=== PATIENT | male | born 1935 | race Caucasian/White ===

== ENCOUNTER 2016-12-16 12:00 | Day surgery (SDC) | payer MEDICARE, OTHER ==
[2016-12-16] MEDS ORDERED: LACTATED RINGERS 1,000 ML IV ONE (12:26)
[2016-12-16] MEDS ORDERED: ceFAZolin 1 GM VIAL ONE (12:27)
[2016-12-16] MEDS ORDERED: fentaNYL 100 MCG/2 ML VIAL IVP ONE (13:37)
[2016-12-16] MEDS ORDERED: MIDAZOLAM 2 MG/2 ML VIAL IVP ONE (13:37)
== END 2016-12-16 12:01 | disposition home or self-care (01) ==
PROC: 0DBP8ZZ Excision of Rectum, Via Natural or Artificial Opening Endoscopic (ICD-10-PCS; principal; 2016-12-16 13:00)
DX: C7A.026 Malignant carcinoid tumor of the rectum (principal); K59.00 Constipation, unspecified; Z80.0 Family history of malignant neoplasm of digestive organs; Z87.891 Personal history of nicotine dependence; Z82.49 Family history of ischemic heart disease and other diseases of the circulatory system; R14.0 Abdominal distension (gaseous); N40.0 Benign prostatic hyperplasia without lower urinary tract symptoms; I10 Essential (primary) hypertension
CPT/HCPCS: 45380; J7120

== ENCOUNTER 2017-01-22 11:11 | Outpatient (CLI) | payer MEDICARE, OTHER | END 2017-01-22 11:12 | disposition home or self-care (01) | DX: M50.30 Other cervical disc degeneration, unspecified cervical region (principal); M47.892 Other spondylosis, cervical region ==

== ENCOUNTER 2017-03-25 06:58 | Emergency (ER) | payer MEDICARE, OTHER ==
[2017-03-25 07:36] LABS: BILIRUBIN,URINE NEGATIVE (NEGATIVE)
[2017-03-25 07:46] LABS: UA CHARGE (STRIP ONLY) YES; UR CULTURE IF IND NOT INDICATED
--- NOTE | 2017-03-25 07:50 | ED Physician Documentation ---
History of Present Illness - Stated complaint Stated Complaint: POST SURG COMPLICATIONS/ABD PX - Chief complaint Chief Complaint: Abd Pain - Additonal information Additional information: hx from pt 81 male had flex sig at Prov yesterday post op urinary retention had in and out cath after many hr able to urinate a little bit so dced unable to urinate since dc sig bladder discomfort had no sx prior to surgery hx "irregular shaped prostate" and used to see Dr Delgadillo q6m but has not seen urology since Dr Delgadillo retired no fever Review of Systems Constitutional: denies: Fever Cardiac: denies: Chest pain / pressure Respiratory: denies: Dyspnea GI: reports: Abdominal Pain (bladder) : reports: Unable to Void PD PAST MEDICAL HISTORY - Past Medical History Past Medical History: Yes Cardiovascular: Hypertension Respiratory: None Endocrine/Autoimmune: HyPOthyroidism GI: Colon polyps : Benign prostate hypertrophy HEENT: Chronic hearing loss Psych: None Musculoskeletal: Gout Derm: Other - Past Surgical History Past Surgical History: Yes General: Colonoscopy, Other Ortho: Knee replacement, Spine surgery, Other HEENT: Cataracts, Tonsil/Adenoidectomy Derm: Skin cancer surgery - Present Medications Home Medications: Ambulatory Orders Medication Instructions Recorded Confirmed Albuterol Sulfate [Albuterol 2 puffs IH Q4HR PRN #1 hfa.aer.ad 01/21/15 10/05/15 Sulfate Hfa] Amoxicillin 500 mg PO TID #20 capsule 01/21/15 10/05/15 Aspirin [Aspir 81] 81 mg PO DAILY 01/21/15 12/16/16 Levothyroxine [Synthroid] 137 mcg PO DAILY 01/21/15 12/15/16 Losartan [Cozaar] 25 mg PO DAILY 01/21/15 12/15/16 guaiFENesin/CODEINE [Robitussin AC] 10 ml PO Q6H PRN #240 ml 01/21/15 10/05/15 predniSONE [Deltasone] 40 mg PO DAILY 5 Days 01/21/15 10/05/15 - Allergies Allergies/Adverse Reactions: Allergies Allergy/AdvReac Type Severity Reaction Status Date / Time lisinopril AdvReac Unknown Verified 10/05/15 11:11 - Social History Does the pt smoke?: No Smoking Status: Never smoker Does the pt drink ETOH?: No Does the pt have substance abuse?: No - Immunizations Immunizations are current?: Yes PD ED PE NORMAL - Vitals Vital signs reviewed: Yes - Neck Neck: Supple, no meningeal sign - Cardiac Cardiac: RRR - Respiratory Respiratory: No respiratory distress - Abdomen Abdomen: Soft, Other (TTP and distended bladder) - Male Male : Other (curc, no blood, no lesions, no swelling) Results - Vitals Vitals: Vital Signs - 24 hr 03/25/17 07:11 Temperature 36.9 C Heart Rate 80 Respiratory 20 Rate Blood Pressure 148/88 H O2 Saturation 98 Oxygen O2 Source Room air - Labs Labs: Laboratory Tests 03/25/17 07:30 Urine Color YELLOW Urine Clarity CLEAR Urine pH 6.0 Ur Specific [place] 1.015 Urine Protein NEGATIVE Urine Glucose (UA) NEGATIVE Urine Ketones NEGATIVE Urine Occult Blood NEGATIVE Urine Nitrite NEGATIVE Urine Bilirubin NEGATIVE Urine Urobilinogen 0.2 (NORMAL) Ur Leukocyte Esterase NEGATIVE Ur Microscopic Review NOT INDICATED Urine Culture Comments NOT INDICATED Departure - Departure Disposition: 01 Home, Self Care Clinical Impression: Postoperative urinary retention Condition: Good Instructions: ED Catheter Care Nikki, NOLAN Retention Urinary Male Follow-Up: Jose Alejandro Fisher MD [Primary Care Provider] - (Thursday to have the catheter removed ) Jone Silveira MD [Physician No Access] - (call to schedule a urology appointment with this clinic so continue to monitor your prostate like Dr Delgadillo use to do before he retired) Comments: The effects of medications given for surgery should have worn off by Thursday, so see your PMD to have the catheter removed. If there is more urinary retention over the weekend, come back to the ER. Also call the urology clinic to continue the monitoring of your prostate like Dr Delgadillo used to do before he retired Also please have your PMD recheck your blood pressure - it was high today
[2017-03-25] MEDS ORDERED: LIDOCAINE 2% URO-JET 5 ML SYRINGE UR ONE (08:17)
[2017-03-25 08:54] VITALS: BP 138/73
== END 2017-03-25 08:35 | disposition home or self-care (01) ==
LOC: ED 06:58
DX: K91.89 Other postprocedural complications and disorders of digestive system (principal); N40.1 Benign prostatic hyperplasia with lower urinary tract symptoms; R33.8 Other retention of urine; I10 Essential (primary) hypertension; Z96.659 Presence of unspecified artificial knee joint; Z85.828 Personal history of other malignant neoplasm of skin
CPT/HCPCS: 51702; 51798; 81001; 81003; 87086; 99283

== ENCOUNTER 2017-03-26 18:36 | Emergency (ER) | payer MEDICARE, OTHER ==
[2017-03-26 19:11] VITALS: BP 144/80
--- NOTE | 2017-03-26 20:26 | ED Physician Documentation ---
PD HPI MALE - Stated complaint Stated Complaint: CATHETER LOOSE - Chief complaint Chief Complaint: Abd Pain - History obtained from History obtained from: Patient, Family - History of Present Illness Timing - onset: Today Timing - duration: Days (1) Timing - details: Abrupt onset Pain level max: 5 Pain level now: 2 Associated symptoms: No: Dysuria, Urinary frequency, Unable to urinate, Hematuria, Discharge - Additional information Additional information: Patient is an 81-year-old male that recently had a Jordan catheter placed, states that the catheter was accidentally pulled on today causing pain and some bleeding from around the catheter itself. The bleeding is since resolved. Still has some pain. Review of Systems GI: denies: Abdominal Pain, Vomiting PD PAST MEDICAL HISTORY - Past Medical History Past Medical History: Yes Cardiovascular: Hypertension Respiratory: None Endocrine/Autoimmune: HyPOthyroidism GI: Colon polyps : Benign prostate hypertrophy HEENT: Chronic hearing loss Psych: None Musculoskeletal: Gout Derm: Other - Past Surgical History Past Surgical History: Yes General: Colonoscopy, Other Ortho: Knee replacement, Spine surgery, Other HEENT: Cataracts, Tonsil/Adenoidectomy Derm: Skin cancer surgery - Present Medications Home Medications: Ambulatory Orders Medication Instructions Recorded Confirmed Aspirin [Aspir 81] 81 mg PO DAILY 01/21/15 03/26/17 Levothyroxine [Synthroid] 137 mcg PO DAILY 01/21/15 03/26/17 Losartan [Cozaar] 25 mg PO DAILY 01/21/15 03/26/17 Brinzolamide 1% Ophth Drops [Azopt 1 drops EACHEYE BID 03/26/17 03/26/17 1% Ophth Drops] Latanoprost 0.005% Ophth Drops 1 drops EACHEYE DAILY PM 03/26/17 03/26/17 [Xalatan Ophth Drops] Timolol Maleate/Pf [Timoptic 0.5% 1 drops EACHEYE DAILY 03/26/17 03/26/17 Ocudose Drop] - Allergies Allergies/Adverse Reactions: Allergies Allergy/AdvReac Type Severity Reaction Status Date / Time codeine AdvReac Unknown Verified 03/26/17 19:11 lisinopril AdvReac severe Verified 03/26/17 19:12 constipation - Social History Does the pt smoke?: No Smoking Status: Never smoker Does the pt drink ETOH?: No Does the pt have substance abuse?: No - Immunizations Immunizations are current?: Yes PD ED PE NORMAL - Vitals Vital signs reviewed: Yes - General General: Alert and oriented X 3, No acute distress - Abdomen Abdomen: Soft, Non tender, Non distended - Male Male : Other (Jordan catheter in place with a small amount of bleeding around the urethral meatus.) - Derm Derm: Warm and dry - Neuro Neuro: Alert and oriented X 3 - Psych Psych: Normal mood, Normal affect Results - Vitals Vitals: Vital Signs - 24 hr 03/26/17 19:06 Temperature 36.9 C Heart Rate 64 Respiratory 16 Rate Blood Pressure 144/80 H O2 Saturation 96 Oxygen O2 Source Room air PD MEDICAL DECISION MAKING - ED course Complexity details: reviewed old records, re-evaluated patient, considered differential, d/w patient, d/w family ED course: Patient is an 81-year-old male who appears to have suffered some minor urethral trauma from his Jordan catheter being accidentally pulled on today. The balloon is still inflated within the bladder on ultrasound and is still draining clear urine. He does have an appointment with urology and will have him follow-up with them to have the catheter removed. The Jordan catheter was repositioned on the leg. This resolved the tugging on the catheter. Patient counseled regarding signs and symptoms for which I believe and urgent re-evaluation would be necessary. Patient with good understanding of and agreement to plan and is comfortable going home at this time This document was made in part using voice recognition software. While efforts are made to proofread this document, sound alike and grammatical errors may occur. Departure - Departure Disposition: 01 Home, Self Care Clinical Impression: Urethral trauma Qualifiers: Encounter type: initial encounter Qualified Code(s): S37.30XA - Unspecified injury of urethra, initial encounter Condition: Good Instructions: ED Catheter Care Jordan Follow-Up: Jose Alejandro Fisher MD [Primary Care Provider] - Within 3 Days Comments: You appear to have had trauma from your catheter being pulled on. The balloon is inflated in the bladder and the catheter is not dislodged. Your doctor may want to leave the catheter for several days to let this heal and prevent scarring. Discharge Date/Time: 03/26/17 20:31
--- NOTE | 2017-03-26 23:24 | ED Physician Documentation ---
ED Addendum - Addendum Addendum: 03/26/17 23:23 unscheduled return visit - chart accessed for follow up and educational purposes
== END 2017-03-26 20:31 | disposition home or self-care (01) ==
LOC: ED 18:36
DX: S37.30XA Unspecified injury of urethra, initial encounter (principal); X58.XXXA Exposure to other specified factors, initial encounter; I10 Essential (primary) hypertension
CPT/HCPCS: 99283

== ENCOUNTER 2019-04-01 12:55 | Outpatient (CLI) | payer MEDICARE, OTHER ==
--- NOTE | 2019-04-01 15:38 | Ultrasound Report ---
Reason: UNSPECIFIED SYMPTOMS SIGNS INVOLVING GENITOURINA Procedure Date: 04/01/2019 Accession Number: [id number] / [id number] Procedure: US - Bladder CPT Code: FULL RESULT: EXAM: PELVIS ULTRASOUND, LIMITED EXAM DATE: 04/01/2019 02:10 PM. CLINICAL HISTORY: Lower pelvic pain for 2 months, bladder evaluation requested. COMPARISON: None. TECHNIQUE: Real-time scanning was performed with static images obtained. FINDINGS: The urinary bladder measures 162 cc prevoid and 54 cc post void, and moderate postvoid residual. No tenderness during the exam. No bladder wall thickening, mass or debris evident. No visible calculi. The kidneys were not imaged. IMPRESSION: Moderate postvoid bladder residual of 54 cc. RADIA
== END 2019-04-01 12:56 | disposition home or self-care (01) ==
LOC: DI 12:55
PROVIDERS: ATTEND Internal Medicine
DX: R39.9 Unspecified symptoms and signs involving the genitourinary system (principal)
CPT/HCPCS: 76857

== ENCOUNTER 2019-04-01 13:24 | Outpatient (CLI) | payer MEDICARE, OTHER ==
--- NOTE | 2019-04-02 06:38 | XRAY Report ---
Reason: LUMBAR BACK PAIN, THORACIC BACK PAIN Procedure Date: 04/01/2019 Accession Number: [id number] / [id number] Procedure: XR - Thoracic Spine 2 View CPT Code: FULL RESULT: EXAM: THORACIC SPINE RADIOGRAPHY EXAM DATE: 04/01/2019 01:51 PM. CLINICAL HISTORY: LUMBAR BACK PAIN, THORACIC BACK PAIN. COMPARISON: None. TECHNIQUE: 3 views. FINDINGS: Alignment: Normal. No spondylolisthesis or scoliosis. Bones: No acute fracture is identified. No suspicious osseous lesion is visualized. Disks: Disk height is relatively well maintained. There is extensive bridging anterolateral syndesmophyte/osteophyte formation. Soft Tissues: Normal. The visualized lungs and cardiomediastinal silhouette are normal. IMPRESSION: 1. No evidence of acute pathology in the thoracic spine. 2. Findings suggestive of DISH. RADIA
--- NOTE | 2019-04-03 00:50 | XRAY Report ---
Reason: LUMBAR BACK PAIN, THORACIC BACK PAIN Procedure Date: 04/01/2019 Accession Number: [id number] / [id number] Procedure: XR - Lumbar Spine 2 View CPT Code: FULL RESULT: EXAM: LUMBOSACRAL SPINE RADIOGRAPHY EXAM DATE: 04/01/2019 01:51 PM. CLINICAL HISTORY: Lumbar back pain. Thoracic back pain. COMPARISONS: LUMBAR SPINE 2 VIEW 06/09/2016 8:32 AM. TECHNIQUE: 3 views. FINDINGS: Alignment: Minimal S-shaped scoliosis. No spondylolisthesis. Loss of normal lordosis. Bones: Five yem-gor-cholyic lumbar vertebral bodies are present. No fractures or bone lesions. Disks: Degenerative disk disease throughout the lumbar spine, advanced L2 to S1. Sacroiliac Joints: Unremarkable. Soft Tissues: Normal. The visualized bowel gas pattern is normal. IMPRESSION: Stable minimal S-shaped scoliosis and multilevel degenerative disk disease, severe L2 to S1. RADIA
== END 2019-04-01 13:25 | disposition home or self-care (01) ==
LOC: DI 13:24
PROVIDERS: ATTEND Internal Medicine
DX: M51.36 Other intervertebral disc degeneration, lumbar region (principal); M51.37 Other intervertebral disc degeneration, lumbosacral region; M41.9 Scoliosis, unspecified; R39.9 Unspecified symptoms and signs involving the genitourinary system
CPT/HCPCS: 72070; 72100; 76857

== ENCOUNTER 2019-05-07 07:55 | Outpatient (CLI) | payer MEDICARE, OTHER ==
--- NOTE | 2019-05-09 18:01 | MRI Report ---
Reason: DISSEMINATED IDIOPATHIS SKELETAL HYPEROSTOSIS Procedure Date: 05/07/2019 Accession Number: [id number] / [id number] Procedure: MRI - Thoracic Spine W/O CPT Code: FULL RESULT: EXAM: MRI THORACIC SPINE WITHOUT CONTRAST. EXAM DATE: 05/07/2019 09:01 AM. CLINICAL HISTORY: Disseminated idiopathic skeletal hyperostosis. Clinical history from prior study includes: Back pain. COMPARISONS: THORACIC SPINE 2 VIEW 04/01/2019 1:37 PM. TECHNIQUE: Multiplanar, multisequence T1-weighted and fluid-sensitive sequences of the thoracic spine from C7 to L1 without contrast. Other: None. FINDINGS: Spinal Canal: No signal abnormality in the visualized spinal cord. The spinal canal is adequate. Alignment: Mild levorotatory curvature is seen in the upper thoracic spine. No spondylolisthesis. Bone Marrow: No gross fractures or bone lesion. No bone marrow replacement. An oval 20 mm hemangioma is seen in the T12 vertebral body. Small, less than 10 mm, hemangioma are noted in the T11 and T9 vertebral bodies. Disk Levels/Facets: C7-T1: Unremarkable. T1-T2: Unremarkable. T2-T3: Unremarkable. T3-T4: Unremarkable. T4-T5: Unremarkable. T5-T6: Unremarkable. Mild right anterolateral osteophyte formation. T6-T7: Unremarkable. Mild right anterolateral osteophyte formation. T7-T8: Unremarkable. Mild right anterolateral osteophyte formation. T8-T9: Unremarkable. Mild to moderate right anterolateral osteophyte formation. Small endplate Schmorl's node formation with bone marrow edema is appreciated. No disk protrusion is seen. T9-T10: Unremarkable. Mild right anterolateral osteophyte formation. Minimal left dorsolateral disk bulge. T10-T11: Unremarkable. Mild right lateral osteophyte formation. Mild lobular dorsal disk bulge. Effacement of the thecal sac is seen greater to the left. No stenosis. T11-T12: Unremarkable. Minimal dorsal disk bulge. T12-L1: Unremarkable. Mild broad-based dorsal disk bulge is seen. Focal prominent dorsal epidural lipomatosis is seen. Effacement of the thecal sac is noted. No stenosis. Musculature: Normal. No edema or fatty atrophy. Other: The visualized lungs, mediastinum, and abdominal cavity are unremarkable. IMPRESSION: 1. Normal appearance to the thoracic spinal cord. 2. No canal or foraminal stenosis. 3. Mild spondylosis in the mid and lower thoracic spine as noted above. Mild right anterolateral osteophyte formation is seen from T5-T6 through T10-T11. This could be degenerative or secondary to diffuse idiopathic skeletal hyperostosis (DISH). 4. Small endplate Schmorl's node formation and adjacent bone marrow edema at T8-T9. This can be associated with back pain. RADIA
== END 2019-05-07 07:56 | disposition home or self-care (01) ==
LOC: DI 07:55
PROVIDERS: ATTEND Internal Medicine
DX: M48.14 Ankylosing hyperostosis [Forestier], thoracic region (principal); M47.814 Spondylosis without myelopathy or radiculopathy, thoracic region; M51.44 Schmorl's nodes, thoracic region
CPT/HCPCS: 72146

== ENCOUNTER 2019-05-28 09:25 | Emergency (ER) | payer MEDICARE, OTHER ==
[2019-05-28] MEDS ORDERED: MINERAL OIL ENEMA 133 ML BOTTLE RC STA (10:05)
[2019-05-28] MEDS ORDERED: MAGNESIUM CITRATE 296 ML BOTTLE PO STA (10:05)
--- NOTE | 2019-05-28 10:18 | ED Physician Documentation ---
History of Present Illness - Stated complaint Stated Complaint: CONSTIPATION - Chief complaint Chief Complaint: Abd Pain - History obtained from History obtained from: Patient - History of Present Illness Timing: How many weeks ago (3) Pain level max: 8 Pain level now: 8 Improved by: nothing Worsened by: nothing - Additonal information Additional information: 83-year-old male states that he has been constipated for the past 3 weeks. He saw his doctor yesterday who recommended senna. He was unable to make it to the store last night to get this. States pain started this morning. No nausea or vomiting. He states he has been constipated since starting a new medication for "prostate issues". No fevers. Review of Systems Constitutional: denies: Fever, Chills Nose: denies: Rhinorrhea / runny nose, Congestion Throat: denies: Sore throat Cardiac: denies: Chest pain / pressure Respiratory: denies: Dyspnea, Cough Skin: denies: Rash Musculoskeletal: denies: Neck pain, Back pain Neurologic: denies: Headache PD PAST MEDICAL HISTORY - Past Medical History Cardiovascular: Hypertension Respiratory: None Endocrine/Autoimmune: HyPOthyroidism GI: Colon polyps : Benign prostate hypertrophy HEENT: Chronic hearing loss Psych: None Musculoskeletal: Gout Derm: Other - Past Surgical History Past Surgical History: Yes General: Colonoscopy, Other Ortho: Knee replacement, Spine surgery, Other HEENT: Cataracts, Tonsil/Adenoidectomy Derm: Skin cancer surgery - Present Medications Home Medications: Ambulatory Orders Medication Instructions Recorded Confirmed Levothyroxine [Synthroid] 137 mcg PO DAILY 01/21/15 03/26/17 Losartan [Cozaar] 25 mg PO DAILY 01/21/15 03/26/17 Polyethylene Glycol 3350 [Miralax] 17 gm PO DAILY PRN #1 bottle 05/28/19 - Allergies Allergies/Adverse Reactions: Allergies Allergy/AdvReac Type Severity Reaction Status Date / Time codeine AdvReac Unknown Verified 05/28/19 09:39 lisinopril AdvReac severe Verified 05/28/19 09:39 constipation - Social History Does the pt smoke?: No Smoking Status: Never smoker Does the pt drink ETOH?: No Does the pt have substance abuse?: No - Immunizations Immunizations are current?: Yes PD ED PE NORMAL - Vitals Vital signs reviewed: Yes - General General: Alert and oriented X 3, No acute distress, Well developed/nourished - HEENT HEENT: PERRL, Moist mucous membranes - Neck Neck: Supple, no meningeal sign - Cardiac Cardiac: RRR - Respiratory Respiratory: No respiratory distress, Clear bilaterally - Abdomen Abdomen: Soft, Non tender, Non distended - Rectal Rectal: Other (firm stool in rectal vault) - Derm Derm: Warm and dry - Neuro Neuro: Alert and oriented X 3 - Psych Psych: Normal mood, Normal affect Results - Vitals Vitals: Vital Signs - 24 hr 05/28/19 05/28/19 09:37 11:41 Temperature 36.8 C Heart Rate 77 70 Respiratory 18 18 Rate Blood Pressure 175/85 H 127/73 O2 Saturation 99 98 Oxygen O2 Source Room air PD MEDICAL DECISION MAKING - ED course Complexity details: reviewed results, re-evaluated patient, considered differential, d/w patient ED course: Patient with a large bowel movement after magnesium citrate and enema. Feels much better. Will place on MiraLAX for home. Patient counseled regarding signs and symptoms for which I believe and urgent re-evaluation would be necessary. Patient with good understanding of and agreement to plan and is comfortable going home at this time This document was made in part using voice recognition software. While efforts are made to proofread this document, sound alike and grammatical errors may occur. Departure - Departure Disposition: 01 Home, Self Care Clinical Impression: Constipation Qualifiers: Constipation type: unspecified constipation type Qualified Code(s): K59.00 - Constipation, unspecified Condition: Good Instructions: ED Constipation Follow-Up: Jose Alejandro Fisher MD [Primary Care Provider] - Within 1 week Prescriptions: Polyethylene Glycol 3350 [Miralax] 17 gm PO DAILY PRN #1 bottle PRN Reason: Constipation Comments: Drink plenty of water at home. Return if you worsen. Follow-up with your doctor for further care. Discharge Date/Time: 05/28/19 11:42
[2019-05-28] MEDS ORDERED: SOAP SUDS ENEMA 1 EACH RC STA (10:52)
[2019-05-28 11:42] VITALS: BP 127/73
== END 2019-05-28 11:42 | disposition home or self-care (01) ==
LOC: ED 09:25
DX: K59.00 Constipation, unspecified (principal); I10 Essential (primary) hypertension
CPT/HCPCS: 99282; 99284; A9270

== ENCOUNTER 2019-07-25 13:56 | Outpatient (CLI) | payer MEDICARE, OTHER ==
--- NOTE | 2019-07-25 15:43 | XRAY Report ---
Reason: SOA AND COUGH Procedure Date: 07/25/2019 Accession Number: [id number] / [id number] Procedure: XRS - Chest 2 View X-Ray CPT Code: 72843 Final Report FULL RESULT: EXAM: CHEST RADIOGRAPHY EXAM DATE: 07/25/2019 02:10 PM. CLINICAL HISTORY: Shortness of breath. Cough. COMPARISON: CHEST 2 VIEW PA/LAT 01/21/2015. TECHNIQUE: 2 views. FINDINGS: Lungs/Pleura: Minimal basilar atelectasis noted. No focal opacities evident. No pleural effusion. No pneumothorax. Symmetric aeration. Mediastinum: Heart and mediastinal contours are unremarkable. Other: Degenerative changes with features of DISH again noted throughout the thoracic spine. IMPRESSION: No radiographic evidence for acute cardiopulmonary disease. RADIA
== END 2019-07-25 13:57 | disposition home or self-care (01) ==
LOC: DI.S 13:56
PROVIDERS: ATTEND Nurse Practitioner Family
DX: J20.9 Acute bronchitis, unspecified (principal)
CPT/HCPCS: 71046

== ENCOUNTER 2020-04-05 07:12 | Outpatient (CLI) | payer MEDICARE, OTHER ==
--- NOTE | 2020-04-05 10:17 | MRI Report ---
PROCEDURE: Lumbar Spine W/O INDICATIONS: RIGHT SCIATICA TECHNIQUE: Noncontrast sagittal T1 spin echo and T2 fast echo, sagittal STIR, axial T1 and T2 fast spin echo thr ough the lumbar spine. In cases with scoliosis, additional coronal T2 fast spin echo may be performe d. COMPARISON: Lumbar spine plain films dated 04/01/2019. FINDINGS: Image quality: Excellent. Alignment and Curvature: There is normal bony alignment. Bone Marrow: Marrow is of normal overall signal. No acute vertebral body compression fractures. Spinal Cord: Conus medullaris terminates at the T12-L1 level. Visualized cord demonstrates normal s ignal and size. Paraspinous Soft Tissues: No paravertebral masses. T12-L1: Disc bulge. Facet and ligament hypertrophy. Mild canal stenosis. Mild to moderate bilateral foraminal stenosis. L1-L2: Short pedicles. Disc bulge. Facet and ligament hypertrophy. Moderate canal stenosis. Mild t o moderate bilateral foraminal stenosis. L2-L3: Short pedicles. Disc bulge. Facet and ligament hypertrophy. Severe canal stenosis. Mild to moderate bilateral foraminal stenosis. L3-L4: Short pedicles. Disc bulge. Facet and ligament hypertrophy. Severe canal stenosis. Mild to m oderate foraminal stenosis. L4-L5: Minimal disc bulge. No canal stenosis. Mild bilateral foraminal stenosis. L5-S1: Disc bulge. Mild facet hypertrophy. Epidural lipomatosis. Moderate canal stenosis. Mild to m oderate bilateral foraminal stenosis. IMPRESSION: 1. Multilevel canal stenosis is mild at T12-L1, moderate at L1-L2, severe at L2-L3, severe at L3-L4, and moderate at L5-S1. Reviewed by: Ross Mitchell MD on 04/05/2020 10:16 AM PDT Approved by: Ross Mitchell MD on 04/05/2020 10:16 AM PDT Station ID: [id number]
== END 2020-04-05 07:13 | disposition home or self-care (01) ==
LOC: DI 07:12
PROVIDERS: ATTEND Internal Medicine
DX: M54.31 Sciatica, right side (principal); M48.05 Spinal stenosis, thoracolumbar region; M48.061 Spinal stenosis, lumbar region without neurogenic claudication
CPT/HCPCS: 72148

== ENCOUNTER 2020-11-26 08:45 | Outpatient (CLI) | payer MEDICARE, OTHER ==
--- NOTE | 2020-11-26 09:36 | CT Report ---
PROCEDURE: Abdomen/Pelvis WO INDICATIONS: LLQ PAIN TECHNIQUE: Noncontrast 5 mm thick sections acquired from the diaphragms to the symphysis. 5 mm coronal and sagi ttal reformats were then performed. For radiation dose reduction, the following was used: automated exposure control, adjustment of mA and/or kV according to patient size. COMPARISON: 06/07/2016. FINDINGS: Image quality: Excellent. ABDOMEN: Lung bases: Lung bases are clear. Heart size is normal. Mild coronary artery calcifications. Solid organs: Liver and spleen are normal in size. Gallbladder is unremarkable Pancreas is normal in contours. No adrenal nodules. Kidneys are normal in size, without hydronephrosis or nephrolithia sis. Peritoneum and bowel: Incidental note made of a duodenal diverticulum. Unenhanced bowel loops demons trate normal wall thickness and caliber. No free fluid or air. Nodes and vessels: No retroperitoneal or mesenteric adenopathy by size criteria. Aorta and inferior vena cava are normal in caliber. Miscellaneous: No ventral hernias. PELVIS: Genitourinary: Bladder wall thickness is normal. Miscellaneous: Small fat containing left inguinal hernia. No inguinal adenopathy. Right scrotal hydro carmelo. Bones: No suspicious bony lesions. No vertebral body compression fractures. Lumbar degenerative ch danilo with multilevel canal stenosis, moderate at L3-L4. IMPRESSION: 1. No evidence of acute abdominal process. No evidence of diverticulitis. 2. Small fat-containing left inguinal hernia. 3. Mild coronary artery calcifications. 4. Lumbar degenerative change with multilevel canal stenosis, moderate at L3-L4. Reviewed by: Ross Mitchell MD on 11/26/2020 9:34 AM PDT Approved by: Ross Mitchell MD on 11/26/2020 9:34 AM PDT Station ID: [id number]
== END 2020-11-26 08:46 | disposition home or self-care (01) ==
LOC: DI 08:45
PROVIDERS: ATTEND Surgery
DX: R10.32 Left lower quadrant pain (principal); K40.90 Unilateral inguinal hernia, without obstruction or gangrene, not specified as recurrent; M47.816 Spondylosis without myelopathy or radiculopathy, lumbar region; M48.061 Spinal stenosis, lumbar region without neurogenic claudication

== ENCOUNTER 2023-09-18 11:34 | Outpatient (CLI) | payer MEDICARE, OTHER | END 2023-09-18 11:35 | disposition EMS.NT | LOC: EMS 11:34 | DX: U07.1 COVID-19 (principal) ==

== ENCOUNTER 2023-11-26 08:42 | Outpatient (CLI) | payer MEDICARE, BC ==
--- NOTE | 2023-11-26 16:50 | Ultrasound Report ---
PROCEDURE: Arterial Duplex Lwr Ext LT INDICATIONS: L ANKLE WOUND TECHNIQUE: Color and pulse Doppler interrogation was performed of the left lower extremity arterial system, with image documentation. COMPARISON: CT abdomen and pelvis without contrast on November 26, 2020 FINDINGS: Common femoral artery: 60 cm/sec, with triphasic flow. Deep femoral artery: 45.6 cm/sec, with triphasic flow. Proximal superficial femoral artery: 85.4 cm/sec, with triphasic flow. Mid superficial femoral artery: 47.8 cm/sec, with triphasic flow. Distal superficial femoral artery: 37.9 cm/sec, with triphasic flow. Popliteal artery: 24.4 cm/sec, with biphasic flow. Posterior tibial artery: 60.8 cm/sec, with biphasic flow. Anterior tibial artery/dorsalis pedis: Not visualized/29.7 cm/sec, with nonvisualized/biphasic flow. Terrazas-scale imaging description: Scattered atherosclerotic plaque. IMPRESSION: 1.Anterior tibial artery is not visualized and may be chronically occluded. 2.Remainder of the arterial vasculature is multiphasic with no velocity shift to suggest a hemodynami emory significant stenosis. Reviewed by: Iain Browning MD on 11/26/2023 4:49 PM PDT Approved by: Iain Browning MD on 11/26/2023 4:49 PM PDT Station ID: [id number]
== END 2023-11-26 08:43 | disposition home or self-care (01) ==
LOC: DI 08:42
PROVIDERS: ATTEND Registered Nurse
DX: S91.002D Unspecified open wound, left ankle, subsequent encounter (principal)

== ENCOUNTER 2024-01-28 16:00 | Outpatient (CLI) | payer MEDICARE, BC ==
--- NOTE | 2024-01-29 21:42 | Ultrasound Report ---
PROCEDURE: Ankle Brachial Index INDICATIONS: PAD WITH WOUND TECHNIQUE: Ankle-brachial indices were obtained bilaterally and recorded. COMPARISON: Arterial ultrasound on November 26, 2023 FINDINGS: Right lower extremity: Common femoral artery: 68.5 cm/sec, with triphasic flow. Deep femoral artery: 67 cm/sec, with biphasic flow. Proximal superficial femoral artery: 78.9 cm/sec, with biphasic flow. Mid superficial femoral artery: 83.3 cm/sec, with biphasic flow. Distal superficial femoral artery: 86.4 cm/sec, with monophasic flow. Popliteal artery: 50.4 cm/sec, with monophasic flow. Posterior tibial artery: 17/27/14 cm/sec, with monophasic flow. Anterior tibial artery/dorsalis pedis: 69/92 cm/sec, with monophasic flow. [place]-scale imaging description: Scattered atherosclerotic plaque. Left lower extremity: Common femoral artery: 88.6 cm/sec, with triphasic flow. Deep femoral artery: 68.2 cm/sec, with triphasic flow. Proximal superficial femoral artery: 88.3 cm/sec, with biphasic above baseline flow. Mid superficial femoral artery: 92.2 cm/sec, with biphasic above baseline flow. Distal superficial femoral artery: 86.3 cm/sec, with monophasic flow. Popliteal artery: 47.2 cm/sec, with monophasic flow. Posterior tibial artery: 45.3/occluded cm/sec, with monophasic/occluded flow. Anterior tibial artery/dorsalis pedis: 58.8/42.1 cm/sec, with monophasic flow. [place]-scale imaging description: Scattered atherosclerotic plaque. Right brachial: 137 mmHg Right ankle: 120 mmHg Right ankle brachial index (DANIEL): 0.86 Left brachial: ): 138mmHg Left ankle: ): 117mmHg Left ankle brachial index (DANIEL): 0.84 IMPRESSION: 1. Right lower extremity: -Resting DANIEL is moderately reduced at 0.86 -Monophasic waveforms in the distal superficial femoral artery extending to below the knee vasculatur e secondary to atherosclerotic disease. No velocity shift to suggest a hemodynamically significant st enosis. 2. Left lower extremity: -Resting DANIEL is moderately reduced at 0.84 -Monophasic waveforms in the distal superficial femoral artery extending to below the knee vasculatur e secondary to atherosclerotic disease. No velocity shift to suggest a hemodynamically significant st enosis. If clinically warranted, a CTA/MRA runoff can be performed for further evaluation. Reviewed by: Iain Browning MD on 01/29/2024 9:41 PM PDT Approved by: Iain Browning MD on 01/29/2024 9:41 PM PDT Station ID: [id number]
--- NOTE | 2024-01-29 21:42 | Ultrasound Report ---
PROCEDURE: Arterial Duplex Lwr Ext BL INDICATIONS: PAD WITH WOUND TECHNIQUE: Color and pulse Doppler interrogation was performed of both lower extremity arterial systems, with im age documentation. COMPARISON: Arterial ultrasound on November 26, 2023 FINDINGS: Right lower extremity: Common femoral artery: 68.5 cm/sec, with triphasic flow. Deep femoral artery: 67 cm/sec, with biphasic flow. Proximal superficial femoral artery: 78.9 cm/sec, with biphasic flow. Mid superficial femoral artery: 83.3 cm/sec, with biphasic flow. Distal superficial femoral artery: 86.4 cm/sec, with monophasic flow. Popliteal artery: 50.4 cm/sec, with monophasic flow. Posterior tibial artery: 17/27/14 cm/sec, with monophasic flow. Anterior tibial artery/dorsalis pedis: 69/92 cm/sec, with monophasic flow. [place]-scale imaging description: Scattered atherosclerotic plaque. Left lower extremity: Common femoral artery: 88.6 cm/sec, with triphasic flow. Deep femoral artery: 68.2 cm/sec, with triphasic flow. Proximal superficial femoral artery: 88.3 cm/sec, with biphasic above baseline flow. Mid superficial femoral artery: 92.2 cm/sec, with biphasic above baseline flow. Distal superficial femoral artery: 86.3 cm/sec, with monophasic flow. Popliteal artery: 47.2 cm/sec, with monophasic flow. Posterior tibial artery: 45.3/occluded cm/sec, with monophasic/occluded flow. Anterior tibial artery/dorsalis pedis: 58.8/42.1 cm/sec, with monophasic flow. [place]-scale imaging description: Scattered atherosclerotic plaque. Right brachial: 137 mmHg Right ankle: 120 mmHg Right ankle brachial index (DANIEL): 0.86 Left brachial: ): 138mmHg Left ankle: ): 117mmHg Left ankle brachial index (DANIEL): 0.84 IMPRESSION: 1. Right lower extremity: -Resting DANIEL is moderately reduced at 0.86 -Monophasic waveforms in the distal superficial femoral artery extending to below the knee vasculatur e secondary to atherosclerotic disease. No velocity shift to suggest a hemodynamically significant st enosis. 2. Left lower extremity: -Resting DANIEL is moderately reduced at 0.84 -Monophasic waveforms in the distal superficial femoral artery extending to below the knee vasculatur e secondary to atherosclerotic disease. No velocity shift to suggest a hemodynamically significant st enosis. If clinically warranted, a CTA/MRA runoff can be performed for further evaluation. Reviewed by: Iain Browning MD on 01/29/2024 9:41 PM PDT Approved by: Iain Browning MD on 01/29/2024 9:41 PM PDT Station ID: [id number]
== END 2024-01-28 16:01 | disposition home or self-care (01) ==
LOC: DI 16:00
PROVIDERS: ATTEND Surgery Vascular Surgery
DX: I73.9 Peripheral vascular disease, unspecified (principal)
CPT/HCPCS: 93922; 93925